=== PATIENT | female | born 1970 | race Caucasian/White ===

== ENCOUNTER → 2017-08-16 | Outpatient (CLI) | payer OTHER ==
[~2017-08-16] MED LIST: ALLEGRA ALLERG180 MG PO; ALLEGRA30 MG; FLEXERIL 1010 MG/TAB PO; IBU800 M1 PO; LEVAQUIN 5500 MG/TA1 PO; LEVAQUIN 5500 MG/TAB PO; LORTAB 5/500 501 TAB PO; MACROBID 1100 MG/CAP PO; MULTI VITAMINS1 TAB PO; NORCO 325 MG-51 TAB PO; SINGULAIR 110 MG/TAB; SUDAFED 12 HOU120 MG; SYNTHROID0.112 MG/T; SYNTHROID0.125 MG/T; TIROSINT112 MCG PO; TIROSINT88 MC1 PO; VITAMIND3 5000 PO
== END ==
LOC: MC.RAD 07-25 09:40
DX: Z12.31 Encounter for screening mammogram for malignant neoplasm of breast (principal); N64.89 Other specified disorders of breast; N64.1 Fat necrosis of breast; N63.22 Unspecified lump in the left breast, upper inner quadrant; Z98.890 Other specified postprocedural states

== ENCOUNTER → 2017-08-22 | Outpatient (CLI) | payer OTHER | LOC: MC.RAD 08:00 | DX: N60.02 Solitary cyst of left breast (principal) ==

== ENCOUNTER → 2021-02-24 | Outpatient (CLI) | payer OTHER | LOC: MC.RAD 13:49 | DX: N60.02 Solitary cyst of left breast (principal) ==